=== PATIENT | male | born 1935 | race Caucasian/White ===

== ENCOUNTER 2020-09-14 10:06 | Outpatient (REF) | payer OTHER, SELFPAY ==
[2020-09-14 14:14] LABS: Urine Cytology See Pathology rpt
== END 2020-09-14 10:07 | disposition home or self-care (01) ==
LOC: CF 10:06
PROVIDERS: Visit Provider Urology
DX: R31.9 Hematuria, unspecified (principal); R35.1 Nocturia; N40.1 Benign prostatic hyperplasia with lower urinary tract symptoms
CPT/HCPCS: 81002; 88112; 99202

== ENCOUNTER 2020-10-08 14:04 | Outpatient (REF) | payer OTHER, SELFPAY ==
--- NOTE | ~2020-10-08 | US_ITS ---
EXAMINATION: US RETROPERITONEAL COMPLETE (RENAL) CLINICAL INFORMATION: Calculus of kidney. COMPARISON: None TECHNIQUE: Real-time imaging of the kidneys and bladder. FINDINGS: RIGHT KIDNEY: 10.7 x 6.5 x 4.3 cm (SAG x AP x TRV). The kidney is normal in size, contour, and echogenicity. Renal cortical thickness is normal. There are multiple peripelvic cysts, largest measuring 1 x 1.5 cm. There is a 6 x 3 x 7 mm stone in the lower pole. No hydronephrosis. LEFT KIDNEY: 10.7 x 7.4 x 4.6 cm (SAG x AP x TRV). The kidney is normal in size, contour, and echogenicity. Renal cortical thickness is normal. There are 2 peripelvic cysts measuring 2.4 x 1.3 x 2.1 cm in the upper pole and 1.9 x 2.4 x 2.3 cm in the lower pole. There is a 6 x 6 x 8 mm stone in the midpole. No focal parenchymal lesions or hydronephrosis. BLADDER: The bladder wall is thickened and trabeculated. There is an irregularly-shaped echogenic lesion adjacent to the right posterior bladder wall measuring 7 x 5 x 8 mm questionable for a bladder mass versus adherent stone. Bilateral ureteral jets are demonstrated. Prevoid bladder volume is 196 mL. Postvoid bladder volume is 32 mL. Enlarged prostate with calcification, volume 84 mL. ADDITIONAL FINDING: There are gallstones in the gallbladder. US/US retroperitoneal comp IMPRESSION: Bilateral renal stones. Bilateral renal cysts. Thickened trabeculated bladder wall. 7 x 5 x 8 mm irregularly-shaped echogenic lesion adjacent to the right posterior wall of the bladder questionable for a mass versus stone. Enlarged prostate gland that protrudes into the base of the bladder. Small 32 mL post void bladder residual.
== END 2020-10-08 14:05 | disposition home or self-care (01) ==
LOC: HO.US 14:04
PROVIDERS: PCP Internal Medicine; Visit Provider Urology
DX: N20.0 Calculus of kidney (principal); R31.29 Other microscopic hematuria
CPT/HCPCS: 76770

== ENCOUNTER → 2020-10-26 10:13 | Outpatient (BNVA) | payer OTHER, SELFPAY | PROVIDERS: PCP Internal Medicine; Visit Provider Urology | DX: C67.9 Malignant neoplasm of bladder, unspecified (principal) | CPT/HCPCS: 52000; 81002; 99212 ==

== ENCOUNTER 2020-10-26 11:35 | Outpatient (REF) | payer OTHER, SELFPAY ==
[2020-10-26 14:01] LABS: Blood Urea Nitrogen 21 mg/dL (9-16); Estimated Glomerular Filt Rate > 60
== END 2020-10-26 11:36 | disposition home or self-care (01) ==
LOC: HO.10HDL 11:35
PROVIDERS: Visit Provider Urology
DX: N26.1 Atrophy of kidney (terminal) (principal); C67.9 Malignant neoplasm of bladder, unspecified
CPT/HCPCS: 36415; 82565; 84520

== ENCOUNTER 2020-11-12 11:29 | Day surgery (SDC) | payer OTHER, SELFPAY ==
[2020-11-06 14:05] VITALS: BMI 25.4
--- NOTE | 2020-11-07 13:27 | HO.ANESPROP2 ---
Documented by User: Anh Maria 11/07/20 13:34 HPI - Anesthesia Eval Consult details Narrative: 85yo M for TUR Bladder Tumor [facility] Active Problems Active Problems: All Active Problems (Updated 11/06/20 @ 15:34 by Maggie Cardona) BPH loc w urin obs/LUTS (Acute) Nocturia more than twice per night (Acute) Microscopic hematuria (Acute) Bladder cancer (Acute) Past Medical History Medical History Arthritis Cyst of neck Elevated cholesterol Hearing loss HTN (hypertension) Hx of falling Polyarthritis Recent bereavement Squamous cell carcinoma Weakness of both legs Narrative: Pt with weakness and falls after 'd . Seen by pcp, no further work up done. Fall/weakness has not occured in months per patient. Surgical History Surgical History Hx of bilateral cataract extraction Hx of tonsillectomy Social History Social History Smoking Status: Never smoker Use of substances other than those prescribed or required for medical reasons: No Advance Directives: No Advance Directives Information Provided: No Advance Directives on File: No Meds Allergies Allergy/AdvReac Type Severity Reaction Status Date / Time No Known Allergies Allergy Verified 11/12/20 13:01 Home Medications Medication Instructions Recorded Confirmed Last Taken Type losartan 50 mg PO DAILY 11/06/20 11/06/20 Unknown History pravastatin 20 mg PO BEDTIME 11/06/20 11/06/20 Unknown History Vitamin D2 11/12/20 11/12/20 Unknown History Exam Exam Date and Time: November 07, 2020 1327 Height,Weight and Vital Signs: Height 5 ft 11 in Weight 82.554 kg Assessment and Plan Assessment Anesthesia Assessment: Chart Reviewed Documented by User: Az Malcolm MD 11/12/20 13:14 [facility] Past Medical History Medical History Arthritis Cyst of neck Elevated cholesterol Hearing loss HTN (hypertension) Hx of falling Polyarthritis Recent bereavement Squamous cell carcinoma Weakness of both legs Surgical History Surgical History Hx of bilateral cataract extraction Hx of tonsillectomy Social History Social History Smoking Status: Never smoker Use of substances other than those prescribed or required for medical reasons: No Advance Directives: No Advance Directives Information Provided: No Advance Directives on File: No Meds Allergies Allergy/AdvReac Type Severity Reaction Status Date / Time No Known Allergies Allergy Verified 11/12/20 13:01 Home Medications Medication Instructions Recorded Confirmed Last Taken Type losartan 50 mg PO DAILY 11/06/20 11/06/20 Unknown History pravastatin 20 mg PO BEDTIME 11/06/20 11/06/20 Unknown History Vitamin D2 11/12/20 11/12/20 Unknown History Exam Airway Mallampati Class: II TM Dist: >3cm Neck ROM: Full Loose/Missing/Broken Teeth: Yes Heart: RRR Assessment and Plan Assessment Anesthesia Assessment: Anesthesia Plan Discussed and Chart Reviewed Final Anesthetic Review NPO: Yes ASA Class: III Final Preanesthetic Review: No Changes in Pt Med Stat, Meds/Allgs Chart Reviewed, Consent Obtained/Reviewed and Anes Risks/Benef Reviewed Patient Risk: Intermediate Procedure Risk: Intermediate Anesthetic Plan Anesthetic Plan: GA Disposition: Standard PACU
[2020-11-12 13:03] VITALS: BP 135/73; PULSE 93; RESP 20; TEMP 36.9; O2SAT 98
[2020-11-12] MEDS: levoFLOXacin 500 MG TABLET PO (13:09)
[2020-11-12] MEDS: Lactated Ringers 1,000 ML 50 ML IV (13:09)
--- NOTE | 2020-11-12 13:42 | MHC.SHP ---
Pre-Procedural Eval Section A The patient is an INPATIENT: No Changes since office visit: No Cold of Flu in the past 2 weeks, No New Medical Problems, No Changes in Medication and No Patient answered all questions The History & Physical has been completed within 30 days and I have reviewed it.: Yes Section B Chief Complaint: malignant neoplasm of bladder Allergies: Allergies Allergy/AdvReac Type Severity Reaction Status Date / Time No Known Allergies Allergy Verified 11/12/20 13:01 Plan Diagnosis/Plan: Unchanged (TURBT bilateral retrogrades) I have reviewed the history and physical and performed a pertinent physical examination on my patient. No changes have occurred unless specified.
--- NOTE | 2020-11-12 14:18 | PM.OP ---
Brief Operative Note Date of Service: 11/12/20 Pre-op diagnosis: Bladder ca Post-op diagnosis: same Procedure: TURBT and fulgeration. right retrograde Surgeon: Blade Jamison MD Anesthesia: GLMA Estimated blood loss (mL): 10 Pathology: none sent Condition: stable Disposition: same day
--- NOTE | 2020-11-12 14:20 | P.OP_ITS ---
Operative Note Operative Note Date of Service: 11/12/20 Narrative: PreOperative Diagnosis: Hematuria, bladder cancer Post Operative Diagnosis: Bladder cancer superficial CIS Procedure: TURBT in fulguration with right retrograde Surgeon: Dr Blade Jamison Anesthesia: general Indications for procedure: Rocky is an 85-year-old male. Turned up with hematuria in the hospital. Found to have BPH with neovascularity of prostate and the lesion on the right bladder sidewall. Scheduled for TURBT with retrograde. Procedure: After informed consent was verified the patient was brought to the operating room and placed in a supine position. anesthesia was administered per protocol. Patient was placed in modified dorsal lithotomy position and prepped and draped in a sterile fashion. Safety pause time-out performed. Antibiotics had been given. Twenty-two Lebanese cystoscope inserted. Narrow band imaging used. Had lesion on the right bladder sidewall. Also in the surrounding area there were visual field defect changes on the bladder mucosa. Using the resectoscope the area was resected and fulgurated. The cancer was very superficial so most the area was just fulgurated and was very little sample left be sent. In appearance was consistent with small frondular areas in neovascularity highly suggestive of CIS. An area greater than 5 cm was fulgurated TURBT large. Retrograde examination was performed on the right-hand side. We were not able to see the left ureteric orifice secondary to lose which was tinging the fluid calorie and made visualization difficult. Procedure was completed. The bladder was emptied. He was transferred in stable condition to the recovery area Pathology: None Drains: None
[2020-11-12 14:29] VITALS: BP 125/73; PULSE 81; RESP 14; TEMP 36.6; O2SAT 96
[2020-11-12 14:35] VITALS: BP 132/77; PULSE 74; RESP 16; O2SAT 95
[2020-11-12 14:40] VITALS: BP 132/79; PULSE 71; RESP 16; O2SAT 98
[2020-11-12 14:49] VITALS: BP 127/74; PULSE 71; RESP 16; O2SAT 98
[2020-11-12 14:55] VITALS: BP 133/79; PULSE 76; RESP 18; TEMP 36.6; O2SAT 98
== END 2020-11-12 15:28 | disposition home or self-care (01) ==
PROVIDERS: PCP Internal Medicine; Visit Provider Urology
PROC: 0TBB8ZZ Excision of Bladder, Via Natural or Artificial Opening Endoscopic (ICD-10-PCS; CPT 52240; principal; 2020-11-12 13:00)
DX: C67.9 Malignant neoplasm of bladder, unspecified (principal); D09.0 Carcinoma in situ of bladder; R31.9 Hematuria, unspecified; N42.89 Other specified disorders of prostate; I10 Essential (primary) hypertension; Z63.4 Disappearance and death of family member; R29.6 Repeated falls
CPT/HCPCS: 52240; 52005; C1758; C1769; J1100; J2370; J2405; J3010; Q9967

== ENCOUNTER 2020-11-30 12:42 | Outpatient (REF) | payer OTHER, SELFPAY ==
--- NOTE | ~2020-11-30 | CT_ITS ---
EXAMINATION: CT ABDOMEN AND PELVIS WITHOUT AND WITH CONTRAST CLINICAL INFORMATION: Gross hematuria COMPARISON: None. TECHNIQUE: Noncontrast CT of the abdomen and pelvis is performed followed by split bolus contrast-enhanced images using 85 mL Omnipaque 350 contrast.? Postcontrast imaging is performed during the combined nephrogram and excretion phase. Sagittal and coronal reformatted images were obtained on the technologist's workstation for both the precontrast and postcontrast phases. This CT examination was performed using dose optimization techniques as appropriate, variously including the following: *Automated exposure control *Adjustment of mA and/or kV according to patient size (this includes techniques or standardized protocols for targeted exams where dose is matched to indication/reason for exam; i.e. extremities or head) *Use of iterative reconstruction technique DLP: 838 mGy-cm FINDINGS: LUNG BASES: The visualized lung bases are unremarkable. LIVER, GALLBLADDER, AND BILIARY TREE: The liver is normal in size, shape, and attenuation. No focal hepatic lesion or biliary ductal dilatation is present. There are multiple radio gallstones without wall thickening PANCREAS: Unremarkable. SPLEEN: Unremarkable. ADRENAL GLANDS: Unremarkable. KIDNEYS AND URETERS: There are no radiopaque renal calculi or hydroureteronephrosis. Following IV contrast administration there are symmetrical bilateral nephrograms. The left kidney measures 10.1 cm in length and the right kidney measures 10.3 cm in length. There is partial visualization of left distal ureter and bilateral proximal ureters and the kidney pelvises. There are bilateral peripelvic renal cysts. No enhancing renal mass visualized. There is minimal bilateral perinephric space stranding. BLADDER: Unremarkable. GASTROINTESTINAL TRACT: There is scattered stool and gas seen throughout the colon without any significant distention. The small bowel loops are normal caliber. The appendix is normal caliber. ABDOMINAL WALL: No significant hernia is appreciated. LYMPH NODES: Normal. VASCULAR: Unremarkable. PELVIC VISCERA: Prostate gland is mildly enlarged with central gland calcification. The periprostatic fat planes are preserved. OSSEUS STRUCTURES: There are degenerative disc changes with vacuum disc phenomena from T10-T11 through L5-S1 disc levels. There is moderate ventral spondylosis. Grade 1 retrolisthesis of L3 over L4 is noted. CT/CT urogram IMPRESSION: No radiopaque renal calculi or hydroureteronephrosis. There is bilateral peripelvic renal cysts. Mild prostate enlargement with central gland calcifications. There are degenerative disc changes and vacuum disc phenomena and spondylosis throughout lumbar spine.
[2020-11-30 14:11] LABS: Blood Urea Nitrogen 18 mg/dL (9-16); Estimated Glomerular Filt Rate 59
[2020-11-30] MEDS: iohexoL 350 MG/ML 100 ML INFUS..BTL IV (15:42)
== END 2020-11-30 12:43 | disposition home or self-care (01) ==
LOC: HO.CT 12:42
PROVIDERS: Visit Provider Urology
DX: C67.9 Malignant neoplasm of bladder, unspecified (principal); R31.0 Gross hematuria; R31.29 Other microscopic hematuria
CPT/HCPCS: 36415; 74178; 82565; 84520; Q9967

== ENCOUNTER → 2020-12-07 14:49 | Outpatient (BNVA) | payer OTHER, SELFPAY | PROVIDERS: PCP Internal Medicine; Visit Provider Urology ==